=== PATIENT | female | born 1930 | race Caucasian/White ===

== ENCOUNTER 2017-06-12 09:52 | Inpatient (IN) | payer OTHER, MEDICAID ==
[2017-06-12] VITALS (13 sets, daily range): BP systolic 79–115
[~2017-06-12] VITALS: Ht 165.1 cm; Wt 59.0 kg
[~2017-06-12 09:52] MED LIST: ARTT OP; ASPI-1063 PO; ATOR10TA68 PO; BRI.2% OP; DONE10TA44 PO; DORZ10DR8 OP; FERR-57 PO; FURO-150 PO; GLU850 PO; INSU100V11 SQ; INSU100V7 SUBCUT; LATA2.5D6 OP; LEVO75TA7 PO; LEVO88TA5 PO; LOSA25TA3 PO; MELA5TAB12 PO; MEMA10SO PO; MULT PO; POTA20PA3 PO; SENN-153 PO
[2017-06-12 10:42] LABS: BASOPHILS % (AUTO) 0.2 % (0.0-2.0); EOSINOPHILS % (AUTO) 0.1 % (0.0-4.0); HEMATOCRIT 34.3 % (36-48); HEMOGLOBIN 11.2 g/dL (12.0-16.0); LYMPHOCYTES # (AUTO) 0.7 K/uL (1.0-5.5); LYMPHOCYTES % (AUTO) 4.7 % (20.5-51.5); MEAN CORPUSCULAR HEMOGLOBIN 31 pg (27-31); MEAN CORPUSCULAR HGB CONC 33 % (32-36); MEAN CORPUSCULAR VOLUME 96 fL (79.0-98.0); MONOCYTES # (AUTO) 1.5 K/uL (0.0-1.0); MONOCYTES % (AUTO) 9.5 % (1.7-9.3); NEUTROPHILS # (AUTO) 13.2 K/uL (1.8-7.7); NEUTROPHILS % (AUTO) 85.5 % (40.0-70.0); PLATELET COUNT (AUTO) 164 K/uL (130-430); RED BLOOD CELL COUNT(AUTO) 3.59 MIL/uL (4.2-6.2); RED CELL DISTRIBUTION WIDTH 18.2 % (9.0-15.0); WHITE BLOOD COUNT (AUTO) 15.4 K/uL (4.8-10.8)
[2017-06-12] MEDS ORDERED: NACL 0.9% 1,000 ML IV ONE ×3 (10:45→13:30)
[2017-06-12 11:09] LABS: BILIRUBIN,URINE NEGATIVE (NEGATIVE); BLOOD, URINE NEGATIVE (NEGATIVE); CLARITY/URINE SL HAZY (CLEAR); COLOR,URINE YELLOW (YELLOW); GLUCOSE,URINE 1+ (NEGATIVE); KETONES,URINE TRACE (NEGATIVE); LEUKOCYTE ESTERASE ,URINE 1+ (NEGATIVE); NITRITE, URINE NEGATIVE (NEGATIVE); PH,URINE 5.5 (5.0-8.0); PROTEIN URINE NEGATIVE (NEGATIVE); UROBILINOGEN,URINE 0.2 (0.2-1.0)
[2017-06-12 11:14] LABS: PROTHROMBIN TIME 11.2 SECS (9.5-12.5)
[2017-06-12] MEDS ORDERED: VANCOMYCIN HCL 1,000 MG in NS 250 ML IV ONE (11:15)
[2017-06-12] MEDS ORDERED: PIPERACILLIN/TAZO 3.375 GM in NS 50 ML IV ONE (11:15)
[2017-06-12 11:30] LABS: BACTERIA,URINE MODERATE /HPF (None Seen); MUCUS,URINE 1+ /LPF (None Seen); RBC,URINE 0-3 /HPF (0-3)
[2017-06-12 11:34] LABS: ANION GAP 12 (5-15); CALCIUM 9.1 mg/dL (8.4-11.0); CHLORIDE 107 mmol/L (98-107); CREATININE 1.61 mg/dL (0.55-1.30); GLUCOSE 360 mg/dL (70-99); POTASSIUM 4.1 mmol/L (3.5-5.1); SODIUM SERUM 142 mmol/L (136-145)
[2017-06-12 11:39] LABS: ALANINE AMINOTRANSFERASE 38 U/L (12-78); ALBUMIN 2.6 g/dL (3.4-4.8); ASPARTATE AMINOTRANSFERASE 34 U/L (10-37); TOTAL BILIRUBIN 0.3 mg/dL (0.0-1.0)
[2017-06-12] MEDS ORDERED: VANCOMYCIN HCL 1000 MG/VIAL IV ONE (11:40)
[2017-06-12] MEDS ORDERED: PIPERACILLIN/TAZOBACTAM 3.375 GM/VIAL (ZOSYN) IV ONE (11:40)
[2017-06-12 11:43] LABS: UREA NITROGEN, BLOOD 112 mg/dL (8-21)
[2017-06-12] MEDS ORDERED: PANTOPRAZOLE SODIUM 80 MG in NS 100 ML IV ONE (12:00)
[2017-06-12] MEDS ORDERED: PANTOPRAZOLE SODIUM 40 MG in NS 50 ML IV SCH ×2 (12:00→12:15)
[2017-06-12] MEDS ORDERED: PANTOPRAZOLE SODIUM 40 MG/VIAL (PROTONIX) IVP ONE (12:15)
[2017-06-12] MEDS ORDERED: LOADING DOSE: PANTOPRAZOLE SODIUM 80 MG in NS 100 ML IVP ONE (12:15)
[2017-06-12] MEDS ORDERED: NOREPINEPHRINE BITARTRATE 4 MG in NS 246 ML IV PRN (13:30)
[2017-06-12] MEDS ORDERED: NOREPINEPHRINE 4 MG/4 ML VIAL IV ONE (13:35)
[2017-06-12] MEDS: NACL 0.9% 1,000 ML IV SCH ×2 (14:19→15:10)
[2017-06-12 14:42] LABS: BASOPHILS # (AUTO) 0.1 K/uL (0.0-0.2); BASOPHILS % (AUTO) 0.6 % (0.0-2.0); HEMATOCRIT 29.3 % (36-48); HEMOGLOBIN 9.4 g/dL (12.0-16.0); LYMPHOCYTES # (AUTO) 1.6 K/uL (1.0-5.5); LYMPHOCYTES % (AUTO) 11.7 % (20.5-51.5); MEAN CORPUSCULAR HEMOGLOBIN 31 pg (27-31); MEAN CORPUSCULAR HGB CONC 32 % (32-36); MEAN CORPUSCULAR VOLUME 96 fL (79.0-98.0); MONOCYTES # (AUTO) 1.4 K/uL (0.0-1.0); MONOCYTES % (AUTO) 10.4 % (1.7-9.3); NEUTROPHILS # (AUTO) 10.7 K/uL (1.8-7.7); NEUTROPHILS % (AUTO) 77.3 % (40.0-70.0); PLATELET COUNT (AUTO) 125 K/uL (130-430); RED BLOOD CELL COUNT(AUTO) 3.04 MIL/uL (4.2-6.2); RED CELL DISTRIBUTION WIDTH 18.3 % (9.0-15.0); WHITE BLOOD COUNT (AUTO) 13.8 K/uL (4.8-10.8)
[2017-06-12] MEDS ORDERED: FLU VACC QS 2017-18(36MOS+)/PF 0.5 ML/SYR SYRINGE I.M. PRN (15:15)
[2017-06-12] MEDS: PIPERACILLIN/TAZO 2.25G/DEX-IS 50 ML IV SCH ×2 (19:30→23:49)
[2017-06-12] MEDS ORDERED: PIPERACILLIN/TAZOBACTAM 2.25 GM VIAL IV ONE (19:30)
[2017-06-13] VITALS (19 sets, daily range): BP systolic 99–151
[2017-06-13] MEDS: NACL 0.9% 1,000 ML IV SCH ×2 (02:33→18:07)
[2017-06-13] MEDS ORDERED: PIPERACILLIN/TAZOBACTAM 2.25 GM VIAL IV ONE (03:06)
[2017-06-13] MEDS: PIPERACILLIN/TAZO 2.25G/DEX-IS 50 ML IV SCH ×3 (05:57→18:07)
[2017-06-13] MEDS: MINERAL OIL 30 ML UDC GT SCH (09:00)
[2017-06-13] MEDS: PANTOPRAZOLE SODIUM 40 MG/VIAL (PROTONIX) IVP SCH (11:13)
[2017-06-13] MEDS: LACTOBACILLUS RHAMNOSUS GG 1 CAP CAPSULE GT SCH (21:33)
[2017-06-14] MEDS: PIPERACILLIN/TAZO 2.25G/DEX-IS 50 ML IV SCH ×3 (00:36→12:17)
[2017-06-14 04:04] VITALS: BP_SYST 130
[2017-06-14] MEDS: NACL 0.9% 1,000 ML IV SCH ×2 (04:57→14:04)
[2017-06-14 07:16] LABS: ALBUMIN 2.2 g/dL (3.4-4.8); BILIRUBIN,DIRECT 0.1 mg/dL (0.0-0.3); TOTAL BILIRUBIN 0.3 mg/dL (0.0-1.0)
[2017-06-14 07:50] VITALS: BP_SYST 150
[2017-06-14] MEDS: MINERAL OIL 30 ML UDC GT SCH ×2 (09:00→12:17)
[2017-06-14] MEDS: PANTOPRAZOLE SODIUM 40 MG/VIAL (PROTONIX) IVP SCH (09:38)
[2017-06-14] MEDS: LACTOBACILLUS RHAMNOSUS GG 1 CAP CAPSULE GT SCH ×2 (09:38→20:44)
[2017-06-14 12:48] VITALS: BP_SYST 103
[2017-06-14] MEDS: ERTAPENEM SODIUM 0.5 GM in NS 50 ML IV SCH (14:07)
[2017-06-14 16:31] VITALS: BP_SYST 143
[2017-06-14] MEDS ORDERED: BISACODYL 5 MG TABLET.DR (DULCOLAX) PO ONE (17:00)
[2017-06-14] MEDS ORDERED: GOLYTELY / COLYTE SOLUTION 4 LITERS PO ONE (18:00)
[2017-06-14 20:00] VITALS: BP_SYST 141
[2017-06-14] MEDS: HEPARIN SODIUM,PORCINE 5000 UNITS/ML VIAL SUBCUT SCH (21:23)
[2017-06-14 23:33] VITALS: BP_SYST 141
[2017-06-15] VITALS (7 sets, daily range): BP systolic 117–144
[2017-06-15] MEDS: NACL 0.9% 1,000 ML IV SCH ×3 (00:30→23:10)
[2017-06-15 06:46] LABS: BASOPHILS % (AUTO) 0.5 % (0.0-2.0); EOSINOPHILS # (AUTO) 0.1 K/uL (0.0-0.4); EOSINOPHILS % (AUTO) 1.3 % (0.0-4.0); HEMOGLOBIN 8.5 g/dL (12.0-16.0); INR 1.1 (0.8-1.2); LYMPHOCYTES # (AUTO) 0.9 K/uL (1.0-5.5); LYMPHOCYTES % (AUTO) 11.5 % (20.5-51.5); MEAN CORPUSCULAR HEMOGLOBIN 31 pg (27-31); MEAN CORPUSCULAR HGB CONC 33 % (32-36); MEAN CORPUSCULAR VOLUME 94 fL (79.0-98.0); MONOCYTES # (AUTO) 0.1 K/uL (0.0-1.0); MONOCYTES % (AUTO) 1.5 % (1.7-9.3); NEUTROPHILS # (AUTO) 6.4 K/uL (1.8-7.7); NEUTROPHILS % (AUTO) 85.2 % (40.0-70.0); PLATELET COUNT (AUTO) 116 K/uL (130-430); PROTHROMBIN TIME 11.6 SECS (9.5-12.5); RED BLOOD CELL COUNT(AUTO) 2.76 MIL/uL (4.2-6.2); RED CELL DISTRIBUTION WIDTH 17.1 % (9.0-15.0); WHITE BLOOD COUNT (AUTO) 7.5 K/uL (4.8-10.8)
[2017-06-15 07:01] LABS: ALANINE AMINOTRANSFERASE 33 U/L (12-78); ANION GAP 14 (5-15); ASPARTATE AMINOTRANSFERASE 38 U/L (10-37); CALCIUM 7.1 mg/dL (8.4-11.0); CHLORIDE 106 mmol/L (98-107); GLUCOSE 156 mg/dL (70-99); SODIUM SERUM 141 mmol/L (136-145); TOTAL BILIRUBIN 0.4 mg/dL (0.0-1.0); UREA NITROGEN, BLOOD 13 mg/dL (8-21)
[2017-06-15] MEDS: LACTOBACILLUS RHAMNOSUS GG 1 CAP CAPSULE GT SCH ×2 (08:56→21:00)
[2017-06-15] MEDS: PANTOPRAZOLE SODIUM 40 MG/VIAL (PROTONIX) IVP SCH (08:56)
[2017-06-15] MEDS: MINERAL OIL 30 ML UDC GT SCH (08:57)
[2017-06-15] MEDS: HEPARIN SODIUM,PORCINE 5000 UNITS/ML VIAL SUBCUT SCH (08:57)
[2017-06-15] MEDS ORDERED: DOCUSATE SODIUM 100 MG CAPSULE PO PRN (09:15)
[2017-06-15] MEDS ORDERED: MORPHINE 2 MG/ML INJ. SYRINGE IVP PRN (09:15)
[2017-06-15] MEDS ORDERED: POTASSIUM CHLORIDE 40 MEQ, LIDOCAINE JECT 2% PF 100 MG 50 MG in NS 250 ML IV ONE ×2 (09:15→12:19)
[2017-06-15] MEDS ORDERED: POTASSIUM CHLORIDE 20 MEQ TAB.PRT.SR PO ONE (09:15)
[2017-06-15] MEDS ORDERED: LORazepam 2 MG/ML VIAL IVP PRN (09:15)
[2017-06-15] MEDS ORDERED: POTASSIUM CHLORIDE 10 MEQ TAB.PRT.SR PO PRN (09:15)
[2017-06-15] MEDS ORDERED: ACETAMINOPHEN 325 MG TABLET PO PRN (09:15)
[2017-06-15] MEDS ORDERED: ONDANSETRON HCL 4 MG/2 ML VIAL IVP PRN (09:15)
[2017-06-15] MEDS ORDERED: MAGNESIUM SULFATE 50 ML IV PRN (09:15)
[2017-06-15] MEDS: NA PHOS,M-B/NA PHOS,DI-BA 118 ML (FLEET ENEMA) RC ONE ×2 (09:15→12:06)
[2017-06-15] MEDS ORDERED: BISACODYL 10 MG/SUPPOSITORY RC ONE (09:15)
[2017-06-15] MEDS ORDERED: ZOLPIDEM TARTRATE 5 MG TABLET PO PRN (09:15)
[2017-06-15] MEDS ORDERED: POTASSIUM CHLORIDE 40 MEQ, LIDOCAINE JECT 2% PF 100 MG 50 MG in NS 250 ML IV SCH (12:15)
[2017-06-15] MEDS: ERTAPENEM SODIUM 0.5 GM in NS 50 ML IV SCH (14:55)
[2017-06-15] MEDS ORDERED: SIMETHICONE 40 MG/0.6 ML ML ONE (15:33)
[2017-06-15] MEDS: MIDAZOLAM HCL 5 MG/5 ML VIAL ONE ×5 (16:09→16:26)
[2017-06-15] MEDS: MEPERIDINE HCL/PF 100 MG/ML AMP ONE ×3 (16:09→16:13)
[2017-06-16 00:04] VITALS: BP_SYST 108
[2017-06-16 04:51] VITALS: BP_SYST 118
[2017-06-16 06:29] LABS: BASOPHILS % (AUTO) 0.4 % (0.0-2.0); EOSINOPHILS # (AUTO) 0.2 K/uL (0.0-0.4); EOSINOPHILS % (AUTO) 3.4 % (0.0-4.0); HEMOGLOBIN 8.8 g/dL (12.0-16.0); LYMPHOCYTES # (AUTO) 1.1 K/uL (1.0-5.5); LYMPHOCYTES % (AUTO) 17.4 % (20.5-51.5); MEAN CORPUSCULAR HEMOGLOBIN 31 pg (27-31); MEAN CORPUSCULAR HGB CONC 32 % (32-36); MONOCYTES # (AUTO) 0.3 K/uL (0.0-1.0); MONOCYTES % (AUTO) 5.6 % (1.7-9.3); NEUTROPHILS # (AUTO) 4.6 K/uL (1.8-7.7); NEUTROPHILS % (AUTO) 73.2 % (40.0-70.0); PLATELET COUNT (AUTO) 131 K/uL (130-430); RED BLOOD CELL COUNT(AUTO) 2.81 MIL/uL (4.2-6.2); RED CELL DISTRIBUTION WIDTH 17.4 % (9.0-15.0); WHITE BLOOD COUNT (AUTO) 6.2 K/uL (4.8-10.8)
[2017-06-16 06:49] LABS: TOTAL IRON BIND. CAPACITY 247 ug/dL (250-450)
[2017-06-16 06:53] LABS: ALANINE AMINOTRANSFERASE 36 U/L (12-78); ALBUMIN 2.3 g/dL (3.4-4.8); ANION GAP 12 (5-15); ASPARTATE AMINOTRANSFERASE 39 U/L (10-37); CALCIUM 7.4 mg/dL (8.4-11.0); CHLORIDE 112 mmol/L (98-107); CREATININE 0.57 mg/dL (0.55-1.30); GLUCOSE 251 mg/dL (70-99); SODIUM SERUM 146 mmol/L (136-145); TOTAL BILIRUBIN 0.3 mg/dL (0.0-1.0); UREA NITROGEN, BLOOD 9 mg/dL (8-21)
[2017-06-16 07:02] LABS: POTASSIUM 2.7 mmol/L (3.5-5.1)
[2017-06-16 07:09] LABS: MEAN CORPUSCULAR VOLUME 96 fL (79.0-98.0)
[2017-06-16 07:48] LABS: RETICULOCYTE COUNT 1.7 % (0.5-1.5)
[2017-06-16] MEDS ORDERED: GLUCOSE 15 GM GEL (in 37.5 GM TUBE) PO PRN ×2 (08:30)
[2017-06-16] MEDS ORDERED: DEXTROSE 50%-WATER 50 ML DISP.SYRIN IVP PRN ×2 (08:30)
[2017-06-16] MEDS ORDERED: MAGNESIUM SULFATE 50 ML IV ONE (09:00)
[2017-06-16] MEDS ORDERED: POTASSIUM CHLORIDE 40 MEQ, LIDOCAINE JECT 2% PF 100 MG 50 MG in NS 250 ML IV ONE (09:00)
[2017-06-16] MEDS: NACL 0.9% 1,000 ML IV SCH ×2 (10:00→23:31)
[2017-06-16] MEDS: PANTOPRAZOLE SODIUM 40 MG/VIAL (PROTONIX) IVP SCH (10:02)
[2017-06-16] MEDS: POTASSIUM CHLORIDE 20 MEQ/PKT PACKET PO SCH (10:02)
[2017-06-16] MEDS: INSULIN REGULAR, HUMAN 100 UNITS/ML, 10 ML VIAL (novoLIN R) SUBCUT PRN ×2 (10:06→17:22)
[2017-06-16] MEDS: LACTOBACILLUS RHAMNOSUS GG 1 CAP CAPSULE GT SCH ×2 (10:15→23:31)
[2017-06-16] MEDS: MINERAL OIL 30 ML UDC GT SCH (10:25)
[2017-06-16 10:29] VITALS: BP_SYST 135
[2017-06-16 12:00] VITALS: BP_SYST 135
[2017-06-16] MEDS: ERTAPENEM SODIUM 0.5 GM in NS 50 ML IV SCH (15:33)
[2017-06-16 17:36] VITALS: BP_SYST 130
[2017-06-16 20:04] VITALS: BP_SYST 130
[2017-06-17 00:28] VITALS: BP_SYST 109
[2017-06-17 04:55] VITALS: BP_SYST 125
[2017-06-17] MEDS: INSULIN REGULAR, HUMAN 100 UNITS/ML, 10 ML VIAL (novoLIN R) SUBCUT PRN ×2 (06:32→12:10)
[2017-06-17 07:03] LABS: ANION GAP 11 (5-15); CALCIUM 7.7 mg/dL (8.4-11.0); CHLORIDE 112 mmol/L (98-107); CREATININE 0.55 mg/dL (0.55-1.30); GLUCOSE 276 mg/dL (70-99); SODIUM SERUM 146 mmol/L (136-145); UREA NITROGEN, BLOOD 7 mg/dL (8-21)
[2017-06-17 07:07] LABS: BASOPHILS % (AUTO) 0.1 % (0.0-2.0); EOSINOPHILS # (AUTO) 0.2 K/uL (0.0-0.4); EOSINOPHILS % (AUTO) 2.9 % (0.0-4.0); HEMATOCRIT 30.3 % (36-48); HEMOGLOBIN 9.9 g/dL (12.0-16.0); LYMPHOCYTES # (AUTO) 1.1 K/uL (1.0-5.5); LYMPHOCYTES % (AUTO) 18.9 % (20.5-51.5); MEAN CORPUSCULAR HEMOGLOBIN 31 pg (27-31); MEAN CORPUSCULAR HGB CONC 33 % (32-36); MEAN CORPUSCULAR VOLUME 96 fL (79.0-98.0); MONOCYTES # (AUTO) 0.4 K/uL (0.0-1.0); NEUTROPHILS # (AUTO) 4.3 K/uL (1.8-7.7); NEUTROPHILS % (AUTO) 71.1 % (40.0-70.0); PLATELET COUNT (AUTO) 151 K/uL (130-430); RED BLOOD CELL COUNT(AUTO) 3.16 MIL/uL (4.2-6.2); RED CELL DISTRIBUTION WIDTH 17.4 % (9.0-15.0)
[2017-06-17 07:27] LABS: POTASSIUM 2.8 mmol/L (3.5-5.1)
[2017-06-17] MEDS ORDERED: COMMUNICATION ORDER XX ONE (07:45)
[2017-06-17] MEDS ORDERED: POTASSIUM CHLORIDE 40 MEQ, LIDOCAINE JECT 2% PF 100 MG 50 MG in NS 250 ML IV ONE (07:45)
[2017-06-17 08:00] VITALS: BP_SYST 114
[2017-06-17] MEDS: POTASSIUM CHLORIDE 20 MEQ/PKT PACKET PO SCH (08:05)
[2017-06-17] MEDS: LACTOBACILLUS RHAMNOSUS GG 1 CAP CAPSULE GT SCH (08:05)
[2017-06-17] MEDS: PANTOPRAZOLE SODIUM 40 MG/VIAL (PROTONIX) IVP SCH (08:05)
[2017-06-17] MEDS ORDERED: ACETAMINOPHEN 325 MG TABLET GT PRN (11:22)
[2017-06-17] MEDS ORDERED: ZOLPIDEM TARTRATE 5 MG TABLET GT PRN (11:24)
[2017-06-17] MEDS ORDERED: POTASSIUM CHLORIDE 20 MEQ/PKT PACKET GT SCH (11:24)
[2017-06-17] MEDS ORDERED: GLUCOSE 15 GM GEL (in 37.5 GM TUBE) GT PRN (11:25)
[2017-06-17] MEDS ORDERED: DOCUSATE SODIUM 100 MG/10 ML UDC GT PRN (11:30)
[2017-06-17] MEDS: NACL 0.9% 1,000 ML IV SCH (11:53)
[2017-06-17 11:54] LABS: FERRITIN 38 ng/mL (15-150); FOLATE (FOLIC ACID) >20.0 ng/mL (>3.0)
[2017-06-17 12:00] VITALS: BP_SYST 128
[2017-06-17] MEDS: ERTAPENEM SODIUM 0.5 GM in NS 50 ML IV SCH (14:55)
[2017-06-17 16:42] VITALS: BP_SYST 125
[2017-06-17 16:46] VITALS: BP_SYST 125
[2017-06-18 10:39] LABS: HAPTOGLOBIN 336 mg/dL (34-200)
== END 2017-06-17 18:00 | DRG 871 ==
LOC: SED 09:52 → SIC 12:23 → STU 06-13 15:50 → SMU 06-14 16:38
PROVIDERS: ADMIT Internal Medicine Nephrology; ATTEND General Practice
PROC: 02HV33Z Insertion of Infusion Device into Superior Vena Cava, Percutaneous Approach (ICD-10-PCS; principal; 2017-06-12)
PROC: B548ZZA Ultrasonography of Superior Vena Cava, Guidance (ICD-10-PCS; 2017-06-12)
PROC: 0DBL8ZZ Excision of Transverse Colon, Via Natural or Artificial Opening Endoscopic (ICD-10-PCS; 2017-06-15)
DX: A41.9 Sepsis, unspecified organism (principal); R65.21 Severe sepsis with septic shock; N17.0 Acute kidney failure with tubular necrosis; I21.4 Non-ST elevation (NSTEMI) myocardial infarction; J69.0 Pneumonitis due to inhalation of food and vomit; K62.6 Ulcer of anus and rectum; E83.42 Hypomagnesemia; E43 Unspecified severe protein-calorie malnutrition; N39.0 Urinary tract infection, site not specified; K92.2 Gastrointestinal hemorrhage, unspecified; D64.9 Anemia, unspecified; E03.9 Hypothyroidism, unspecified; F03.90 Unspecified dementia, unspecified severity, without behavioral disturbance, psychotic disturbance, mood disturbance, and anxiety; B96.20 Unspecified Escherichia coli [E. coli] as the cause of diseases classified elsewhere; Z16.12 Extended spectrum beta lactamase (ESBL) resistance; I10 Essential (primary) hypertension; K59.00 Constipation, unspecified; K64.8 Other hemorrhoids; E87.6 Hypokalemia; I25.10 Atherosclerotic heart disease of native coronary artery without angina pectoris; D12.3 Benign neoplasm of transverse colon; E11.65 Type 2 diabetes mellitus with hyperglycemia; Z86.73 Personal history of transient ischemic attack (TIA), and cerebral infarction without residual deficits; Z68.21 Body mass index [BMI] 21.0-21.9, adult; Z88.8 Allergy status to other drugs, medicaments and biological substances; Z88.5 Allergy status to narcotic agent; Z79.82 Long term (current) use of aspirin; Z79.899 Other long term (current) drug therapy; Z98.61 Coronary angioplasty status; Z90.49 Acquired absence of other specified parts of digestive tract; Z80.9 Family history of malignant neoplasm, unspecified; Z93.1 Gastrostomy status
CPT/HCPCS: 36415; 36600; 45385; 71010; 74000-TC; 80048; 80053; 80076; 81000-TC; 82607; 82728; 82746; 82803-TC; 82962; 83010; 83540-TC; 83550-TC; 83605; 83735-TC; 84132-TC; 84484; 85025; 85044-TC; 85610-TC; 85730-TC; 86886; 86900; 86901; 87040-TC; 87081; 87086; 87186-TC; 88305; 93005; 93306; 96365; 96366; 96367; 96375; 99291; C1751; C9113; J1335; J1644; J1815; J2060; J2175; J2250; J2543; J3370; J3475; J3480; J7030; J7050; NO CODE; Q2037